=== PATIENT | male | born 1945 | race Caucasian/White ===

== ENCOUNTER 2017-01-09 05:48 | Inpatient (IN) | payer MEDICARE, OTHER ==
[~2017-01-09] VITALS: Ht 182.9 cm; Wt 101.0 kg
[~2017-01-09 05:48] MED LIST: FINA5TAB4 PO; HYDR25TA6 PO; IBUP200T64 PO; MULT-516 PO; TAMS0.4C2 PO; VITAMIN D3 PO; [UNRECOGNIZED DRUG - OTHER] PO; will bring list
[2017-01-09] MEDS ORDERED: BUPIVACAINE/PF 0.5% ONE (06:12)
[2017-01-09] MEDS ORDERED: THROMBIN 5,000 UNIT VIAL TP ONE (06:12)
[2017-01-09] MEDS ORDERED: BACITRACIN 50,000 UNIT ONE (06:13)
[2017-01-09] MEDS ORDERED: LACTATED RINGERS 1,000 ML IV SCH (06:19)
[2017-01-09 06:20] VITALS: BP 125/77
[2017-01-09] MEDS ORDERED: MIDAZOLAM 1 MG/ML, 2ML ONE (07:00)
[2017-01-09] MEDS ORDERED: FENTANYL PF 100 MCG/2ML ONE ×3 (07:00→09:39)
[2017-01-09] MEDS ORDERED: ROCURONIUM 10 MG/ML ONE ×2 (07:27→09:10)
[2017-01-09] MEDS ORDERED: ALBUTEROL SULFATE 2.5 MG/3 ML NPPB PRN (09:00)
[2017-01-09] MEDS ORDERED: HYDROcodone/APAP 7.5-325MG/15ML UDC PO PRN (09:00)
[2017-01-09] MEDS ORDERED: LABETALOL 5MG/ML, 20ML IV PRN (09:00)
[2017-01-09] MEDS ORDERED: PROMETHAZINE 25 MG/ML, 1ML IV PRN (09:00)
[2017-01-09] MEDS ORDERED: hydrALAzine 20 MG/ML, 1ML IV PRN (09:00)
[2017-01-09] MEDS ORDERED: ACETAMINOPHEN 325 MG TABLET PO PRN (09:00)
[2017-01-09] MEDS ORDERED: METOPROLOL 1 MG/ML, 5ML IV PRN (09:00)
[2017-01-09] MEDS ORDERED: OXYcodone 5 MG/5 ML ORAL.SOL UDC PO PRN (09:00)
[2017-01-09] MEDS ORDERED: MIDAZOLAM 1 MG/ML, 2ML IV PRN (09:00)
[2017-01-09] MEDS ORDERED: DIAZEPAM 5 MG/ML, 2ML IVPush PRN (09:00)
[2017-01-09] MEDS ORDERED: FENTANYL PF 100 MCG/2ML IV PRN (09:00)
[2017-01-09] MEDS ORDERED: MEPERIDINE/PF 25MG/0.5ML IVPush PRN (09:00)
[2017-01-09] MEDS ORDERED: HYDROmorphone 1 MG/ML, 1ML IV PRN (09:00)
[2017-01-09] MEDS ORDERED: ONDANSETRON 2MG/ML, 2ML IVPush PRN (09:00)
[2017-01-09] MEDS ORDERED: EPHEDRINE 50 MG/ML, 1ML IVPush PRN (09:00)
[2017-01-09] MEDS ORDERED: NEOSTIGMINE 1 MG/ML, 10ML ONE (09:10)
[2017-01-09] MEDS ORDERED: ONDANSETRON 2MG/ML, 2ML ONE (09:10)
[2017-01-09] MEDS ORDERED: SUCCINYLCHOLINE 20 MG/ML, 10ML ONE (09:10)
[2017-01-09] MEDS ORDERED: GLYCOPYRROLATE 0.2MG/1ML, 5ML ONE (09:10)
[2017-01-09] MEDS ORDERED: CEFAZOLIN 1,000 MG ONE (09:10)
[2017-01-09] MEDS ORDERED: DEXAMETHASONE 4 MG/ML, 1ML ONE (09:10)
[2017-01-09] MEDS ORDERED: PROPOFOL 10 MG/ML, 20ML ONE (09:10)
[2017-01-09] MEDS ORDERED: ACETAMINOPHEN 650 MG/20.3 ML UDC ONE (09:39)
[2017-01-09] MEDS ORDERED: OXYcodone 5 MG/5 ML ORAL.SOL UDC ONE (09:39)
[2017-01-09] MEDS ORDERED: HYDROmorphone 2MG TABLET PO PRN (12:30)
[2017-01-09] MEDS ORDERED: DIPHENHYDRAMINE 50 MG/ML, 1ML IM PRN (12:30)
[2017-01-09] MEDS ORDERED: DIPHENHYDRAMINE 50 MG CAPSULE PO PRN (12:30)
[2017-01-09] MEDS ORDERED: DIPHENHYDRAMINE 50 MG/ML, 1ML IVPush PRN (12:30)
[2017-01-09] MEDS ORDERED: ONDANSETRON 2MG/ML, 2ML IV PRN (12:30)
[2017-01-09] MEDS ORDERED: PROMETHAZINE 25 MG/ML, 1ML IM PRN (12:30)
[2017-01-09] MEDS ORDERED: BISACODYL 10 MG SUPP PR PRN (12:30)
[2017-01-09] MEDS ORDERED: MAGNESIUM HYDROXIDE 8%, 30ML UDC PO PRN (12:30)
[2017-01-09] MEDS ORDERED: HYDROmorphone 2 MG/ML, 1ML IM PRN (12:30)
[2017-01-09] MEDS ORDERED: METHOCARBAMOL 750 MG TABLET PO PRN (12:30)
[2017-01-09] MEDS: MULTIVITAMIN 1 TABLET PO SCH (13:33)
[2017-01-09] MEDS: TAMSULOSIN 0.4 MG CAP.ER.24H PO SCH (13:33)
[2017-01-09] MEDS: NS + 20MEQ KCL 1,000 ML IV SCH (13:33)
[2017-01-09] MEDS: HYDROCHLOROTHIAZIDE 25 MG TABLET PO SCH (13:33)
[2017-01-09] MEDS: FINASTERIDE 5 MG TABLET PO SCH (13:33)
[2017-01-09 14:02] VITALS: BP 111/73
[2017-01-09] MEDS: CEFAZOLIN PMX 1GM/50ML 50 ML IVPB SCH ×2 (16:29→23:13)
[2017-01-09] MEDS: OXYcodone/APAP 5/325MG TABLET PO PRN (18:04)
[2017-01-09 19:55] VITALS: BP 115/57
[2017-01-09] MEDS ORDERED: ZOLPIDEM 5MG TABLET PO PRN (21:00)
[2017-01-10 00:15] VITALS: BP 110/64
[2017-01-10] MEDS: NS + 20MEQ KCL 1,000 ML IV SCH ×2 (03:36→13:15)
[2017-01-10 03:42] VITALS: BP 115/61
[2017-01-10] MEDS: OXYcodone/APAP 5/325MG TABLET PO PRN ×4 (05:26→16:30)
[2017-01-10 08:00] VITALS: BP 138/74
[2017-01-10] MEDS ORDERED: TIZA4TAB9 PO (08:36)
[2017-01-10] MEDS ORDERED: OXYC-302 PO (08:36)
[2017-01-10] MEDS ORDERED: SENNA/DOCUSATE TABLET PO SCH (09:00)
[2017-01-10] MEDS: FINASTERIDE 5 MG TABLET PO SCH (09:44)
[2017-01-10] MEDS: HYDROCHLOROTHIAZIDE 25 MG TABLET PO SCH (09:44)
[2017-01-10] MEDS: MULTIVITAMIN 1 TABLET PO SCH (09:44)
[2017-01-10] MEDS: TAMSULOSIN 0.4 MG CAP.ER.24H PO SCH (09:44)
[2017-01-10 14:30] VITALS: BP 133/71
== END 2017-01-10 17:15 | disposition home or self-care (01) | DRG 520 ==
LOC: OUT 05:48 → 4NOR 11:31 → OUT 11:38 → 4NOR 11:38
PROVIDERS: ADMIT Neurological Surgery; ATTEND Neurological Surgery
PROC: 0SB40ZZ Excision of Lumbosacral Disc, Open Approach (ICD-10-PCS; 2017-01-09)
PROC: 01NR0ZZ Release Sacral Nerve, Open Approach (ICD-10-PCS; 2017-01-09)
PROC: 01NB0ZZ Release Lumbar Nerve, Open Approach (ICD-10-PCS; principal; 2017-01-09 07:30)
DX: M48.062 Spinal stenosis, lumbar region with neurogenic claudication (principal); M47.816 Spondylosis without myelopathy or radiculopathy, lumbar region; Z87.891 Personal history of nicotine dependence; Z82.3 Family history of stroke; Z82.61 Family history of arthritis; Z82.49 Family history of ischemic heart disease and other diseases of the circulatory system
CPT/HCPCS: 72100; J0690; J1100; J2250; J2405; J2704; J2710; J3010; J3480; J3490; J0330; J7120